=== PATIENT | male | born 1965 ===

== ENCOUNTER 2018-01-09 13:36 | Outpatient (CLI) | payer OTHER | END 2018-01-09 13:37 | disposition home or self-care (01) | LOC: BICRAD 13:36 | PROVIDERS: ATTEND Nurse Practitioner Family | DX: R05 Cough (principal) | CPT/HCPCS: 71046 ==

== ENCOUNTER 2018-03-07 19:22 | Emergency (ER) | payer SELFPAY ==
[2018-03-07] MEDS ORDERED: Lidocaine 2% 10 ML INJ ONE (19:37)
[2018-03-07] MEDS ORDERED: Lidocaine 1% w/Epinephrine 1:100K 20 ML VIAL ONE (19:38)
[2018-03-07] MEDS ORDERED: Adacel (T-DAP) 0.5 ML VIAL ONE (19:51)
== END 2018-03-07 20:16 | disposition home or self-care (01) ==
LOC: ERS 19:22
DX: S61.511A Laceration without foreign body of right wrist, initial encounter (principal); E78.5 Hyperlipidemia, unspecified; W45.8XXA Other foreign body or object entering through skin, initial encounter
CPT/HCPCS: 12001; 90471; 90715; J2001